=== PATIENT | female | born 1945 | race Caucasian/White ===

== ENCOUNTER → 2016-11-09 | Day surgery (SDC) | payer OTHER ==
--- NOTE | 2016-11-07 13:05 | MH ---
cc: CRISTHIAN ELI MD DATE OF ADMISSION 11/09/2016 DATE OF 1945 REASON FOR ADMISSION Vaginal suspension and repair HISTORY OF PRESENT ILLNESS The patient is a 70-year-old white female 2, para 2 status post prior total abdominal hysterectomy. She has noted to have issues with pelvic organ prolapse. Her exam in the office shows stage III apical prolapse. She has tried pessary and had some improvement after a gastric bypass where she lost 70 pounds, but still has symptomatology that is distressing to her and wants to proceed with definitive surgery. PAST MEDICAL HISTORY 1. Hypothyroidism 2. Otherwise negative for heart, lung, liver disease, hypertension, diabetes, stroke. PAST SURGICAL HISTORY 1. HALEIGH-BSO 2. Lumpectomy GYNECOLOGIC HISTORY No STD's or abnormal Pap smears. Hysterectomy for benign condition. OBSTETRICAL HISTORY Two vaginal deliveries. SOCIAL HISTORY A 20 pack-year smoking history, but quit in 1989. FAMILY HISTORY Noncontributory MEDICATIONS [place] Thyroid 90 mg daily ALLERGIES None REVIEW OF SYSTEMS As above, no chest pain, orthopnea, or PND. No nausea, vomiting, fever or chills. No vaginal bleeding or discharge. Main issues are pelvic pressure, discomfort, occasional stress incontinence. PHYSICAL EXAM On her exam, she is afebrile, vital signs are stable. Weight is 145, height is 4 foot, 11 inches, blood pressure 120/70. GENERAL: Patient is alert and oriented in no acute distress. No sign of cognitive dysfunction or depression. HEENT: Within normal limits. NECK: Supple. No JVD. CHEST: Clear. HEART: Regular rate and rhythm. ABDOMEN: Soft and nontender. No hepatosplenomegaly. No CVA tenderness. PELVIC: Shows Aa is 0, Ap is 0. Point C is +2. Genital hiatus is 8. Perineal body is 4. Total vaginal length is 10, levators are 3/5 strength. Sacral nerve reflex normal. Further exam under anesthesia. EXTREMITIES: Normal skin without rashes. NEUROLOGIC: Nonfocal. No DVT signs. ASSESSMENT Patient with stage III pelvic organ prolapse, apical compartment predominant. The patient and I discussed options for management and treatment. She is aware of the risks, benefits and alternatives of the planned procedure including damage to surrounding organs, bleeding, infection, failure of repair as well as pain with intercourse and de moiz stress incontinence. Also discussed the possibility of need for catheterization. Patient has made an informed choice to proceed. She would like to proceed with a support procedure. She is aware of the possibility of nerve injury and bleeding issues. She has had prior surgery in the pelvis which may increase her risk somewhat, but overall I think she is a reasonable candidate for the procedure. At this point, we will use DVT prophylaxis with sequential compression device and antibiotic prophylaxis Ancef two grams. Anticipate outpatient procedure. MD NAEEM Brito/TIKI /9:21 AM /1:04 PM
[~2016-11-09] VITALS: Ht 144.8 cm; Wt 66.6 kg
[~2016-11-09] MED LIST: ACETAMINOPHEN 1000 MG/100 ML VIAL IV ONE; ARMO180T PO; CHLORHEXIDINE GLUCONATE 2 % 1 PACK (2 CLOTHS) TOPICAL PRN; CYAN1000P SQ; DEXAMETHASONE SOD PHOS 4 MG/ML VIAL ONE; DO NOT ADM ANY ANTICOAGULANT DRUGS PRN; FAMOTIDINE 20 MG/2 ML VIAL ONE; FLUORESCEIN SOD 10% SOLN 500 MG/5 ML AMP IV ONE; FUROSEMIDE 40 MG/4 ML VIAL ONE; INSULIN HUMAN REGULAR 1,000 UNITS/10 ML VIAL SQ PRN; KETOROLAC TROMETHAMINE 30 MG/ML (IVP) VIAL IV PUSH PRN; KETOROLAC TROMETHAMINE 60 MG/2 ML (IM) VIAL IM ONE; LACTATED RINGER'S 1000 ML IV PRN; LIDOCAINE 1%/EPINEPHrine 1:100,000 SOLN 20 ML VIAL ONE; METHYLENE BLUE 10 MG/ML VIAL OTHER ONE; METOPROLOL TARTRATE 25 MG TAB PO PRN; MIDAZOLAM HCL 2 MG/2 ML VIAL ONE; ONDANSETRON HCL 4 MG/2 ML VIAL IV PUSH ONE; ONDANSETRON HCL 4 MG/2 ML VIAL IV PUSH PRN; OXYB5TAB PO; POVIDONE IODINE 5% (ANTISEPSIS KIT) 4 APPLICATIONS EACH NARE PRN; PROPOFOL 200 MG/20 ML AMP IV ONE; SODIUM CHLORID 0.9% 500 ML IV PRN; ceFAZolin 2 GM PREMIX 50 ML IV SCH; ceFAZolin 2 GM PREMIX 50 ML ONE; fentaNYL CITRATE 250 MCG/5 ML AMP ONE; traMADol HCL 50 MG TAB PO PRN
[2016-11-09 08:26] VITALS: BP 127/65; PULSE 90; RESP 20; TEMP 97.7; O2SAT 100
--- NOTE | 2016-11-09 10:19 | EKG ---
Date Performed: 11/09/2016 Time Performed: 08:29:19 PTAGE: 71 years EKG: Sinus rhythm NORMAL ECG NO PREVIOUS TRACING DOCTOR: Romero Jenkins Interpretating Date/Time 11/09/2016 10:17:15
[2016-11-09 12:30] VITALS: BP 121/76; PULSE 99; RESP 16; TEMP 98.2; O2SAT 99
--- NOTE | 2016-11-09 13:20 | MP ---
cc: CRISTHIAN ELI MD DATE OF SURGERY: 11/09/2016 PREOPERATIVE DIAGNOSES Pelvic organ prolapse and hematuria. POSTOPERATIVE DIAGNOSES Cystocele grade 2, rectocele grade 2, apical prolapse stage II, hematuria. PROCEDURE 1. Anterior posterior repair with enterocele. 2. Extraperitoneal colposuspension. 3. Hematuria with modifier to couple cystoscopy with diagnosis of hematuria. SURGEON Dr. Eli. ANESTHESIA General endotracheal. BLOOD LOSS 50 ccs. URINE OUTPUT 100 ccs. RESIDENT CARE DIRECTOR [facility] staff x2. FLUIDS 1500 ccs of crystalloid. FINDINGS External genitalia, poorly estrogenized. POP-Q score: Aa is +1, Ap is +1. Point C is -2. Total vaginal length is 10. Genital hiatus is 6. Perineal body is 4. Following repair Aa is -3, Ap -3. Point C is -8. Total vaginal length is 8. Genital hiatus is 6. Perineal body is 4. Rectal exam was normal following repair. The cystoscopy shows normal trigone, good coaptation of urethra. Ureteral orifices patent x2. Dome base of bladder normal. There is some mild friability with the proximal urethra at the UVJ but no significant lesions requiring biopsy, perhaps some mild chronic trigonitis but no ulcerations, Hunner ulcers or any other significant findings. Anesthetic bladder capacity was 350 ccs. SPECIMENS None. COMPLICATIONS None. DISPOSITION Recovery room stable. COUNTS Needle, sponge count correct. DRAINS Peraza catheter. DVT PROPHYLAXIS Sequential compression device. ANTIBIOTIC PROPHYLAXIS Ancef 2 grams. SUMMARY OF INDICATION AND PROCEDURE The patient with symptomatic pelvic organ prolapse. She had lost considerable weight but still had significant issues with prolapse, declined use of pessary, wanted to have support procedure done rather than an obliterative procedure. Preoperative labs showed a urinalysis with microhematuria but negative culture. The patient was asymptomatic otherwise. PROCEDURE The patient was taken to the operating theater and prepped and draped in fashion appropriate for the planned procedure. She was in dorsal lithotomy position with careful attention paid to placement of legs in the stirrups to avoid undue stress to sensitive neurovascular structures. Above findings noted. Neurovascular integrity documented. Peraza catheter was placed. Methylene blue was instilled into the bladder. Anterior compartment repair was performed first. We infiltrated with epinephrine lidocaine solution, made a midline incision from the vaginal apex to approximately 1 cm from the meatus, reflected the bladder. The bladder was quite thin but there was no spill of methylene blue. We did perform a standard colporrhaphy with delayed absorbable suture, performed cystoscopy. We also performed cystoscopy at this time with 1 cc of IV fluorescein, a 17-Dutch bridge, a 70 degree scope were used. The above findings noted. The ureteral orifices were patent x2. Dome base of bladder normal and we did not notice any issues requiring biopsy. Vaginal mucosa was trimmed. Hemostatic matrix was used for hemostasis to obviate the need for packing. We closed the mucosa with 2-0 Vicryl suture in a running locking fashion. Still remained apical prolapse as well as rectocele. The epinephrine lidocaine was infiltrated in the posterior vaginal wall. We made a midline incision from the hymenal ring to the apex, reflected the rectum and noted enterocele which was closed without difficulty. We then noted more of a transverse tear in the rectovaginal septum. This was repaired attaching it to the remnant of the pubocervical ring, which also added apical support. Small amount of plication was required distally. Vaginal mucosa was trimmed. The mucosa was closed with a running Vicryl suture 2-0 caliber. Hemostatic matrix was used to obviate the need for packing. Rectal exam was normal following repair. Suture line was inspected and found to be intact and hemostatic. The patient was reversed from anesthesia, taken to the recovery room in stable condition. Regarding hematuria she may want to get a CT scan postoperatively to check for any upper tract issues but this microhematuria might just be a result of chronic trigonitis. MD NAEEM Brito/RANDA /11:58 AM /12:49 PM TINA
== END | disposition home or self-care (01) ==
LOC: HSDC 07:47
PROVIDERS: ATTEND Obstetrics & Gynecology Gynecology
DX: N81.10 Cystocele, unspecified (principal); N81.6 Rectocele; R31.9 Hematuria, unspecified; E03.9 Hypothyroidism, unspecified; Z90.710 Acquired absence of both cervix and uterus; Z87.891 Personal history of nicotine dependence
CPT/HCPCS: 52000; 57265; 57282; 93005; J0131; J0690; J1100; J1885; J1940; J2250; J2405; J3010